=== PATIENT | male | born 1975 | race Caucasian/White ===

== ENCOUNTER 2018-07-05 14:38 | Inpatient (IN) | payer BC ==
[2018-07-05 14:42] VITALS: BMI 25.0
--- NOTE | 2018-07-05 15:06 | HP ---
CIWA Score - Admission Criteria OASAS Guidelines: Admission for Medically Managed Detox: Requires at least one of the followin. CIWA greater than 12 2. Seizures within the past 24 hours 3. Delirium tremens within the past 24 hours 4. Hallucinations within the past 24 hours 5. Acute intervention needed for co occurring medical disorder 6. Acute intervention needed for co occurring psychiatric disorder 7. Severe withdrawal that cannot be handled at a lower level of care (continued vomiting, continued diarrhea, abnormal vital signs) requiring intravenous medication and/or fluids 8. Admission ROS S - HPI Allergies/Adverse Reactions: Allergies Allergy/AdvReac Type Severity Reaction Status Date / Time No Known Allergies Allergy Verified 07/05/18 15:25 - Ebola screening Have you traveled outside of the country in the last 21 days: No (N) Have you had contact with anyone from an Ebola affected area: No Have you been sick,other than usual withdrawal symptoms: No Do you have a fever: No Patient History - Smoking Cessation Smoking history: Never smoked - Substances Abused Alcohol Route: Oral Frequency: Daily Amount used: liquor- 1 liter Age of first use: 11 Date of Last Use: 07/05/18 Admission Physical Exam [facility] - Vital Signs Vital Signs: Vital Signs - 24 hr 07/05/18 14:41 Temperature 97.8 F Pulse Rate 109 H Respiratory 20 Rate Blood Pressure 143/90 Screened but not Admitted - Documentation of Visit Screened but not Admitted: Yes Patient Does Not Meet Criteria for Admission: Yes Level of Care Recommended at this Time: ER Evaluation/Care Additional Information/Explanation: this 43 years old male brought in to [facility], intixicated,. bac0.255,unable to walk,. bp 143/90,p109,r20,t97.8. alcohol on breath,unable to give more information. need to be stabilization and medical clearance. spoke with nurse at [facility]. to be transpoted by [facility] Breath Alcohol Content Breath Alcohol Content: 0.255
--- NOTE | 2018-07-05 21:44 | HP ---
CIWA Score Nausea/Vomitin-No Nausea/No Vomiting Muscle Tremors: 7-Severe,w/o Arm Extended Anxiety: 6 Agitation: 5 Paroxysmal Sweats: 4-Forehead w/Sweat Beads Orientation: 2-Disoriented Date<2 days Tacttile Disturbances: 0-None Auditory Disturbances: 0-None Visual Disturbances: 2-Mild Sensitivity Headache: 4-Moderately Severe CIWA-Ar Total Score: 30 - Admission Criteria OASAS Guidelines: Admission for Medically Managed Detox: Requires at least one of the followin. CIWA greater than 12 2. Seizures within the past 24 hours 3. Delirium tremens within the past 24 hours 4. Hallucinations within the past 24 hours 5. Acute intervention needed for co occurring medical disorder 6. Acute intervention needed for co occurring psychiatric disorder 7. Severe withdrawal that cannot be handled at a lower level of care (continued vomiting, continued diarrhea, abnormal vital signs) requiring intravenous medication and/or fluids 8. Patient presents the following: CIWA greater than 12 Admission Criteria Met: Admission criteria met Admission ROS [facility] Chief Complaint: SEEKING DETOX FOR C/O OF WITHDRAWAL SX'S Allergies/Adverse Reactions: Allergies Allergy/AdvReac Type Severity Reaction Status Date / Time No Known Allergies Allergy Verified 07/05/18 15:25 History of Present Illness: 43 Y.O MALE WITH LONG HX/O ALCOHOLISM HERE FOR DETOX. CLIENT WAS REFERRED BY [facility] AFTER PRESENTING THE FOR BLOOD IN STOOL. HE HAS SINCE BEEN CLEARED AND REFERRED. HE NOW RETURNS FROM [facility] AFTER BEING SENT THERE FOR INTOXICATION AND UNABLE TO GIVE INFO. HE WAS SEEN FOR A POST FALL HEAD CT DONE NO ACUTE PATHOLOGY. NOW HERE FOR DETOX WITH C/O WITHDRAWAL SX'S. CIWA 30. THIS IS HIS FIRST ADMISSION HERE. REPORTS ATTEMPTED DETOX A FEW WEEKS AGO BUT ABORTED THE ADMISSION DUE TO CRAVINGS. REPORTS LONGEST CLEAN TIME 6 YEARS. RELAPSING 2018. DENIES HX/O SEIZURES, SI/HI, AVH. HOMELESS, UNEMPLOYED, DENIES LEGALS PMHX- DENIES PSYCH- PTSD- , ANXIETY Exam Limitations: No Limitations - Ebola screening Have you traveled outside of the country in the last 21 days: No (N) Have you had contact with anyone from an Ebola affected area: No Have you been sick,other than usual withdrawal symptoms: No Do you have a fever: No - Review of Systems Constitutional: Chills, Malaise, Night Sweats, Changes in sleep EENT: reports: Dental Problems (CHIPPED TOOTH) Respiratory: reports: No Symptoms reported Cardiac: reports: No Symptoms Reported GI: reports: Poor Fluid Intake : reports: No Symptoms Reported Musculoskeletal: reports: No Symptoms Reported Integumentary: reports: Flushing, Sweating, Other (RESOLVING HERPETIC SORE TO UPPER LIP) Neuro: reports: Tremors (R/T WITHDRAWAL) Endocrine: reports: No Symptoms Reported Hematology: reports: No Symptoms Reported Psychiatric: reports: Anxious, Depressed Other Systems: Reviewed and Negative Patient History - Patient Medical History Hx Anemia: No Hx Asthma: No Hx Chronic Obstructive Pulmonary Disease (COPD): No Hx Cancer: No Hx Cardiac Disorders: No Hx Congestive Heart Failure: No Hx Hypertension: No Hx Hypercholesterolemia: No Hx Pacemaker: No HX Cerebrovascular Accident: No Hx Seizures: No Hx Dementia: No Hx Diabetes: No Hx Gastrointestinal Disorders: No Hx Liver Disease: No Hx Genitourinary Disorders: No Hx Sexually Transmitted Disorders: No Hx Renal Disease (ESRD): No Hx Thyroid Disease: No Hx Human Immunodeficiency Virus (HIV): No Hx Hepatitis C: No Hx Depression: Yes Hx Suicide Attempt: No Hx Bipolar Disorder: No Hx Schizophrenia: No Other Medical History: PTSD, ANXIETY - Patient Surgical History Past Surgical History: No Hx Neurologic Surgery: No Hx Cataract Extraction: No Hx Cardiac Surgery: No Hx Lung Surgery: No Hx Breast Surgery: No Hx Breast Biopsy: No Hx Abdominal Surgery: No Hx Appendectomy: No Hx Cholecystectomy: No Hx Genitourinary Surgery: No Hx Section: No Hx Orthopedic Surgery: No Anesthesia Reaction: No - PPD History Previous Implant?: Yes Documented Results: Negative w/o proof Implanted On Prior R Admission?: No PPD to be Administered?: Yes - Smoking Cessation Smoking history: Never smoked Cigars Per Day: 0 Hx Chewing Tobacco Use: No Initiated information on smoking cessation: No - Substance & Tx. History Hx Alcohol Use: Yes Hx Substance Use: Yes Substance Use Type: Alcohol Hx Substance Use Treatment: Yes ([facility]) - Substances Abused Alcohol Route: Oral Frequency: Daily Amount used: liquor- 1 liter Age of first use: 11 Date of Last Use: 07/05/18 Family Disease History - Family Disease History Family History: Denies Family Disease History: CA: Mother (BREAST-REMISSION) Admission Physical Exam [facility] - Vital Signs Vital Signs: Vital Signs - 24 hr 07/05/18 07/05/18 14:41 20:32 Temperature 97.8 F 98.7 F Pulse Rate 109 H 99 H Respiratory 20 18 Rate Blood Pressure 143/90 140/80 - Physical General Appearance: Yes: Appropriately Dressed, Moderate Distress, Alcohol on Breath, Tremorous, Sweating, Anxious HEENTM: Yes: EOMI, Normal ENT Inspection, Normocephalic, Normal Voice, EDI, Pharynx Normal, Other (CHIPPED FRONT TOOTH) Respiratory: Yes: Chest Non-Tender, Lungs Clear, Normal Breath Sounds, No Respiratory Distress, No Accessory Muscle Use Neck: Yes: No masses,lesions,Nodules, Supple, Trachea in good position Breast: Yes: Breast Exam Deferred Cardiology: Yes: Regular Rhythm, Regular Rate, S1, S2 Abdominal: Yes: Non Tender, Soft, Increased Bowel Sounds Genitourinary: Yes: Within Normal Limits Back: Yes: Normal Inspection Musculoskeletal: Yes: full range of Motion, Gait Steady Extremities: Yes: Normal Capillary Refill, Normal Range of Motion, Non-Tender, Tremors Neurological: Yes: Alert, Motor Strength 5/5, Disoriented, Depressed Affect Integumentary: Yes: Clammy, Diaphoresis, Moist, Other (FLUSHED) Lymphatic: Yes: Within Normal Limits - Diagnostic (1) Alcohol dependence with uncomplicated withdrawal Current Visit: Yes Status: Acute (2) Depressed affect Current Visit: Yes Status: Acute (3) At risk for dehydration due to poor fluid intake Current Visit: Yes Status: Acute (4) Alcohol-induced mood disorder with depressive symptoms Current Visit: Yes Status: Acute (5) Status post fall Current Visit: Yes Status: Acute Cleared for Admission [facility] - Detox or Rehab [facility] Level of Care: Medically Managed Detox Regimen/Protocol: Librium Claeared for Rehab Admission: No [facility] Breath Alcohol Content Breath Alcohol Content: 0.255 Urine Drug Screen - Results Drug Screen Negative: No Urine Drug Screen Results: BZO-Benzodiazepines
[2018-07-05] MEDS ORDERED: ACETAMINOPHEN 325 MG TABLET (FP) PO PRN (22:02)
[2018-07-05] MEDS ORDERED: MAGNESIUM CITRATE 300 ML BOTTLE PO PRN (22:02)
[2018-07-05] MEDS ORDERED: P-EPHED 60MG/TRIPROLIDI 2.5MG TABLET PO PRN (22:02)
[2018-07-05] MEDS ORDERED: MAGNESIUM HYDROX 2400MG/30ML ORAL SUSPENSION 30 ML CUP PO PRN (22:02)
[2018-07-05] MEDS ORDERED: IBUPROFEN 400 MG TABLET (FP) PO PRN (22:02)
[2018-07-05] MEDS ORDERED: MENTHOL/PHENOL 1 EACH UD MM PRN (22:02)
[2018-07-05] MEDS ORDERED: LOPERAMIDE HCL 2 MG CAPSULE PO PRN (22:02)
[2018-07-05] MEDS ORDERED: guaiFENesin/D-METHORPHAN HB 10 ML UNIT-DOSE CUPS PO PRN (22:02)
[2018-07-05] MEDS ORDERED: chlordiazePOXIDE HCL 25 MG CAPSULE PO ONE (22:30)
[2018-07-05] MEDS: chlordiazePOXIDE HCL 25 MG CAPSULE PO SCH (22:33)
[2018-07-05] MEDS: MAG HYDROX/AL HYDROX/SIMETH 30 ML UNIT-DOSE CUP PO PRN (22:34)
[2018-07-06] MEDS: chlordiazePOXIDE HCL 25 MG CAPSULE PO PRN ×2 (00:31→09:30)
[2018-07-06] MEDS: hydrOXYzine PAMOATE 50 MG CAPSULE (FP) PO PRN (00:31)
[2018-07-06] MEDS: MELATONIN 5 MG TABLETS PO PRN (01:37)
[2018-07-06] MEDS: chlordiazePOXIDE HCL 25 MG CAPSULE PO SCH ×4 (04:03→22:19)
[2018-07-06 10:08] LABS: HEMATOCRIT 33.6 % (35.4-49); HEMOGLOBIN 10.3 GM/dL (11.7-16.9); MCHC 30.6 g/dl (32.0-35.9); MEAN CELL VOLUME 81.7 fl (80-96); MEAN PLT VOLUME 8.4 fl (7.5-11.1); PLATELET COUNT 236 K/MM3 (134-434); RBC 4.11 M/mm3 (4.00-5.60); RDW 15.5 % (11.9-15.9); WHITE BLOOD COUNT 5.5 K/mm3 (4.0-10.0)
[2018-07-06] MEDS: PRENATAL VITAMINS W/ FOLIC ACID TABLET (FP) PO SCH (10:15)
[2018-07-06 10:21] LABS: URINE APPEARANCE CLEAR; URINE BILIRUBIN NEGATIVE (<2.0 mg/dL); URINE COLOR LTYELLOW; URINE GLUCOSE (UA) 1+ (NEGATIVE); URINE KETONE NEGATIVE (NEGATIVE); URINE LEUK ESTERASE NEGATIVE (NEGATIVE); URINE NITRITE NEGATIVE (NEGATIVE); URINE PROTEIN NEGATIVE (NEGATIVE); URINE UROBILINOGEN NEGATIVE mg/dL (0.2-1.0)
[2018-07-06 10:23] LABS: ALBUMIN 3.2 g/dl (3.4-5.0); ALK PHOS 58 U/L (45-117); ANION GAP 8 MMOL/L (8-16); BILIRUBIN,TOTAL 0.3 mg/dL (0.2-1); BLOOD UREA NITROGEN 12 mg/dL (7-18); CALCIUM 8.3 mg/dL (8.5-10.1); CHLORIDE 106 mmol/L (98-107); CO2 26 mmol/L (21-32); CREATININE 0.9 mg/dL (0.55-1.3); GLUCOSE,RANDOM 84 mg/dL (74-106); POTASSIUM 4.3 mmol/L (3.5-5.1); SGOT/AST 35 U/L (15-37); SGPT/ALT 38 U/L (13-61); SODIUM 140 mmol/L (136-145); TOT PROT 6.1 g/dl (6.4-8.2)
--- NOTE | 2018-07-06 11:34 | PN ---
S CIWA - CIWA Score Nausea/Vomitin Muscle Tremors: 2 Anxiety: 2 Agitation: 2 Paroxysmal Sweats: 1-Minimal Palms Moist Orientation: 0-Oriented Tacttile Disturbances: 1-Very Mild Itch/Numbness Auditory Disturbances: 1-Very Mild Visual Disturbances: 0-None Headache: 2-Mild CIWA-Ar Total Score: 13 [facility] Progress Note (SOAP) Subjective: alert,irritable,anxious,interrupted sleep,tremor Objective: 07/06/18 11:32 Vital Signs Temperature 97.7 F 07/06/18 09:45 Pulse Rate 87 07/06/18 09:45 Respiratory Rate 18 07/06/18 09:45 Blood Pressure 117/84 07/06/18 09:45 O2 Sat by Pulse Oximetry (%) 07/06/18 11:32 Laboratory Last Values WBC 5.5 K/mm3 (4.0-10.0) 07/06/18 07:00 RBC 4.11 M/mm3 (4.00-5.60) 07/06/18 07:00 Hgb 10.3 GM/dL (11.7-16.9) L 07/06/18 07:00 Hct 33.6 % (35.4-49) L 07/06/18 07:00 MCV 81.7 fl (80-96) 07/06/18 07:00 MCH 25.0 pg (25.7-33.7) L 07/06/18 07:00 MCHC 30.6 g/dl (32.0-35.9) L 07/06/18 07:00 RDW 15.5 % (11.9-15.9) 07/06/18 07:00 Plt Count 236 K/MM3 (134-434) D 07/06/18 07:00 MPV 8.4 fl (7.5-11.1) 07/06/18 07:00 Sodium 140 mmol/L (136-145) 07/06/18 07:00 Potassium 4.3 mmol/L (3.5-5.1) 07/06/18 07:00 Chloride 106 mmol/L (98-107) 07/06/18 07:00 Carbon Dioxide 26 mmol/L (21-32) 07/06/18 07:00 Anion Gap 8 MMOL/L (8-16) 07/06/18 07:00 BUN 12 mg/dL (7-18) 07/06/18 07:00 Creatinine 0.9 mg/dL (0.55-1.3) 07/06/18 07:00 Creat Clearance w eGFR > 60 (>60) 07/06/18 07:00 Random Glucose 84 mg/dL (74-106) 07/06/18 07:00 Calcium 8.3 mg/dL (8.5-10.1) L 07/06/18 07:00 Total Bilirubin 0.3 mg/dL (0.2-1) 07/06/18 07:00 AST 35 U/L (15-37) 07/06/18 07:00 ALT 38 U/L (13-61) 07/06/18 07:00 Alkaline Phosphatase 58 U/L (45-117) 07/06/18 07:00 Total Protein 6.1 g/dl (6.4-8.2) L 07/06/18 07:00 Albumin 3.2 g/dl (3.4-5.0) L 07/06/18 07:00 Urine Color Ltyellow 07/06/18 08:10 Urine Appearance Clear 07/06/18 08:10 Urine pH 6.0 (5.0-8.0) 07/06/18 08:10 Ur Specific [place] 1.025 (1.010-1.035) 07/06/18 08:10 Urine Protein Negative (NEGATIVE) 07/06/18 08:10 Urine Glucose (UA) 1+ (NEGATIVE) H 07/06/18 08:10 Urine Ketones Negative (NEGATIVE) 07/06/18 08:10 Urine Blood Negative (NEGATIVE) 07/06/18 08:10 Urine Nitrite Negative (NEGATIVE) 07/06/18 08:10 Urine Bilirubin Negative (<2.0 mg/dL) 07/06/18 08:10 Urine Urobilinogen Negative mg/dL (0.2-1.0) 07/06/18 08:10 Ur Leukocyte Esterase Negative (NEGATIVE) 07/06/18 08:10 RPR Titer Nonreactive (NONREACTIVE) 07/06/18 07:00 Assessment: 07/06/18 11:33 withdrawal symptom Plan: continue detox
--- NOTE | 2018-07-06 16:24 | EKG ---
Test Reason : Blood Pressure : / mmHG Vent. Rate : 069 BPM Atrial Rate : 069 BPM P-R Int : 150 ms QRS Dur : 096 ms QT Int : 408 ms P-R-T Axes : 055 052 038 degrees QTc Int : 437 ms NORMAL SINUS RHYTHM NORMAL ECG NO PREVIOUS ECGS AVAILABLE Confirmed by CARMENZA CROSS MD ([id number]) on 07/06/2018 4:24:06 PM Referred By: Confirmed By:CARMENZA CROSS MD
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
[2018-07-06] MEDS ORDERED: QUEtiapine FUMARATE 50 MG TABLET PO SCH (22:00)
[2018-07-06] MEDS: THIAMINE HCL 100 MG TABLET (FP) PO SCH (22:19)
[2018-07-07] MEDS: chlordiazePOXIDE HCL 25 MG CAPSULE PO PRN (00:28)
[2018-07-07] MEDS: chlordiazePOXIDE HCL 25 MG CAPSULE PO SCH ×3 (05:45→17:54)
[2018-07-07] MEDS: PRENATAL VITAMINS W/ FOLIC ACID TABLET (FP) PO SCH (11:19)
--- NOTE | 2018-07-07 17:20 | PN ---
[facility] Progress Note Note: Psychiatric nurse practitioner note: Patient reports difficulty sleeping. Seroquel increased to 75mg. Verbal consent given.
--- NOTE | 2018-07-07 17:40 | PN ---
S CIWA - CIWA Score Nausea/Vomitin-No Nausea/No Vomiting Muscle Tremors: 3 Anxiety: 4-Mod. Anxious/Guarded Agitation: 3 Paroxysmal Sweats: No Perspiration Orientation: 2-Disoriented Date<2 days Tacttile Disturbances: 1-Very Mild Itch/Numbness Auditory Disturbances: 0-None Visual Disturbances: 0-None Headache: 0-None Present CIWA-Ar Total Score: 13 [facility] Progress Note (SOAP) Subjective: Fatigue, Anxious, Tremors. Objective: PATIENT A & O X 2 (UNCERTAIN ABOUT CURRENT DAY / DATE). PATIENT OBSERVED AMBULATING ON UNIT. IN NO ACUTE DISTRESS. 07/07/18 17:37 Vital Signs Temperature 98.1 F 07/07/18 15:38 Pulse Rate 98 H 07/07/18 15:38 Respiratory Rate 18 07/07/18 15:38 Blood Pressure 116/59 L 07/07/18 15:38 O2 Sat by Pulse Oximetry (%) Laboratory Tests 07/06/18 07/06/18 07/06/18 07:00 07:00 07:00 WBC 5.5 RBC 4.11 Hgb 10.3 L Hct 33.6 L MCV 81.7 MCH 25.0 L MCHC 30.6 L RDW 15.5 Plt Count 236 D MPV 8.4 Sodium 140 Potassium 4.3 Chloride 106 Carbon Dioxide 26 Anion Gap 8 BUN 12 Creatinine 0.9 Creat Clearance w eGFR > 60 Random Glucose 84 Calcium 8.3 L Total Bilirubin 0.3 AST 35 ALT 38 Alkaline Phosphatase 58 Total Protein 6.1 L Albumin 3.2 L Urine Color Urine Appearance Urine pH Ur Specific [place] Urine Protein Urine Glucose (UA) Urine Ketones Urine Blood Urine Nitrite Urine Bilirubin Urine Urobilinogen Ur Leukocyte Esterase RPR Titer Nonreactive 07/06/18 08:10 WBC RBC Hgb Hct MCV MCH MCHC RDW Plt Count MPV Sodium Potassium Chloride Carbon Dioxide Anion Gap BUN Creatinine Creat Clearance w eGFR Random Glucose Calcium Total Bilirubin AST ALT Alkaline Phosphatase Total Protein Albumin Urine Color Ltyellow Urine Appearance Clear Urine pH 6.0 Ur Specific [place] 1.025 Urine Protein Negative Urine Glucose (UA) 1+ H Urine Ketones Negative Urine Blood Negative Urine Nitrite Negative Urine Bilirubin Negative Urine Urobilinogen Negative Ur Leukocyte Esterase Negative RPR Titer LABS NOTED. Assessment: 07/07/18 17:39 WITHDRAWAL SYMPTOMS. Plan: CONTINUE DETOX.
[2018-07-07] MEDS: hydrOXYzine PAMOATE 50 MG CAPSULE (FP) PO PRN (17:58)
[2018-07-07] MEDS: QUEtiapine FUMARATE 25 MG TABLET (FP) PO SCH (22:43)
[2018-07-07] MEDS: THIAMINE HCL 100 MG TABLET (FP) PO SCH (22:43)
[2018-07-07] MEDS: MELATONIN 5 MG TABLETS PO PRN (22:43)
[2018-07-07] MEDS: chlordiazePOXIDE 5 MG CAPSULE PO SCH (22:43)
[2018-07-08] MEDS: chlordiazePOXIDE 5 MG CAPSULE PO SCH ×3 (05:48→17:50)
--- NOTE | 2018-07-08 09:28 | PN ---
S Progress Note (SOAP) Subjective: alert,irritable,interrupted sleep Objective: 07/08/18 09:27 Vital Signs Temperature 97.3 F L 07/08/18 06:45 Pulse Rate 64 07/08/18 06:45 Respiratory Rate 16 07/08/18 06:45 Blood Pressure 99/54 L 07/08/18 06:45 O2 Sat by Pulse Oximetry (%) Assessment: 07/08/18 09:27 withdrawal symptom Plan: continue detox,discharge in am
[2018-07-08] MEDS: hydrOXYzine PAMOATE 50 MG CAPSULE (FP) PO PRN (11:24)
[2018-07-08] MEDS: PRENATAL VITAMINS W/ FOLIC ACID TABLET (FP) PO SCH (11:24)
[2018-07-08] MEDS: MAG HYDROX/AL HYDROX/SIMETH 30 ML UNIT-DOSE CUP PO PRN (13:45)
[2018-07-08] MEDS: chlordiazePOXIDE HCL 10 MG CAPSULE PO SCH (22:20)
[2018-07-08] MEDS: THIAMINE HCL 100 MG TABLET (FP) PO SCH (22:20)
[2018-07-08] MEDS: QUEtiapine FUMARATE 25 MG TABLET (FP) PO SCH (22:21)
[2018-07-09] MEDS: chlordiazePOXIDE HCL 10 MG CAPSULE PO SCH ×3 (05:56→18:09)
--- NOTE | 2018-07-09 10:49 | DS ---
[facility] Detox Discharge Summary Admission Date: 07/05/18 Discharge Date: 07/09/18 - History Present History: Alcohol Dependence - Physical Exam Results Vital Signs: Vital Signs Temperature 98.5 F 07/09/18 09:43 Pulse Rate 74 07/09/18 09:43 Respiratory Rate 16 07/09/18 09:43 Blood Pressure 128/82 07/09/18 09:43 O2 Sat by Pulse Oximetry (%) - Treatment Hospital Course: Detox Protocol Followed, Detoxed Safely, Responded well, Discharged Condition Good, Rehab Referral Accepted - Medication Discharge Medications: Ambulatory Orders NK [No Known Home Medication] 07/05/18 - AMA Did Patient Leave Against Medical Advice: No
[2018-07-09] MEDS: PRENATAL VITAMINS W/ FOLIC ACID TABLET (FP) PO SCH (11:05)
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
[2018-07-09] MEDS: THIAMINE HCL 100 MG TABLET (FP) PO SCH (22:43)
[2018-07-09] MEDS: QUEtiapine FUMARATE 25 MG TABLET (FP) PO SCH (22:43)
[2018-07-10 07:15] VITALS: BP 104/65; PULSE 68; TEMP 97.5
--- NOTE | 2018-07-10 21:16 | DS ---
[facility] Detox Discharge Summary Admission Date: 07/05/18 Discharge Date: 07/10/18 - History Present History: Alcohol Dependence Additional Comments: PATIENT GOING TO [facility] ([place], [place]) FOR AFTERCARE. PATIENT WAS DISCHARGED FROM DETOX [facility] IN STABLE MEDICAL CONDITION. Pertinent Past History: History of Depression, History of P.T.S.D., History of Anxiety, Status Post Fall , History Of Insomnia. - Physical Exam Results Vital Signs: Vital Signs Temperature 97.5 F L 07/10/18 10:16 Pulse Rate 68 07/10/18 10:16 Respiratory Rate 18 07/10/18 10:16 Blood Pressure 104/65 07/10/18 10:16 O2 Sat by Pulse Oximetry (%) Pertinent Admission Physical Exam Findings: WITHDRAWAL SYMPTOMS. Laboratory Tests 07/06/18 07/06/18 07/06/18 07:00 07:00 07:00 WBC 5.5 RBC 4.11 Hgb 10.3 L Hct 33.6 L MCV 81.7 MCH 25.0 L MCHC 30.6 L RDW 15.5 Plt Count 236 D MPV 8.4 Sodium 140 Potassium 4.3 Chloride 106 Carbon Dioxide 26 Anion Gap 8 BUN 12 Creatinine 0.9 Creat Clearance w eGFR > 60 Random Glucose 84 Calcium 8.3 L Total Bilirubin 0.3 AST 35 ALT 38 Alkaline Phosphatase 58 Total Protein 6.1 L Albumin 3.2 L Urine Color Urine Appearance Urine pH Ur Specific [place] Urine Protein Urine Glucose (UA) Urine Ketones Urine Blood Urine Nitrite Urine Bilirubin Urine Urobilinogen Ur Leukocyte Esterase RPR Titer Nonreactive 07/06/18 08:10 WBC RBC Hgb Hct MCV MCH MCHC RDW Plt Count MPV Sodium Potassium Chloride Carbon Dioxide Anion Gap BUN Creatinine Creat Clearance w eGFR Random Glucose Calcium Total Bilirubin AST ALT Alkaline Phosphatase Total Protein Albumin Urine Color Ltyellow Urine Appearance Clear Urine pH 6.0 Ur Specific [place] 1.025 Urine Protein Negative Urine Glucose (UA) 1+ H Urine Ketones Negative Urine Blood Negative Urine Nitrite Negative Urine Bilirubin Negative Urine Urobilinogen Negative Ur Leukocyte Esterase Negative RPR Titer LABS NOTED. - Treatment Hospital Course: Detox Protocol Followed, Detoxed Safely, Responded well, Discharged Condition Good, Rehab Referral Accepted Patient has Accepted a Rehab Referral to: [facility] ([place], [place] ). - Medication Discharge Medications: Ambulatory Orders NK [No Known Home Medication] 07/05/18 - Diagnosis (1) Alcohol dependence with uncomplicated withdrawal Status: Resolved (2) Alcohol-induced mood disorder with depressive symptoms Status: Acute (3) At risk for dehydration due to poor fluid intake Status: Acute (4) Depressed affect Status: Acute (5) Status post fall Status: Acute (6) Alcohol-induced mood disorder Status: Acute (7) Insomnia Status: Acute Qualifiers: Insomnia type: unspecified Qualified Code(s): G47.00 - Insomnia, unspecified - AMA Did Patient Leave Against Medical Advice: No
== END 2018-07-10 10:50 | disposition home or self-care (01) | DRG 897 ==
LOC: YASAS 14:38 → Y6N 22:01
PROC: HZ2ZZZZ Detoxification Services for Substance Abuse Treatment (ICD-10-PCS; principal; 2018-07-05)
DX: F10.230 Alcohol dependence with withdrawal, uncomplicated (principal); F10.24 Alcohol dependence with alcohol-induced mood disorder; F41.9 Anxiety disorder, unspecified; F43.10 Post-traumatic stress disorder, unspecified; E86.0 Dehydration; G47.00 Insomnia, unspecified; R45.89 Other symptoms and signs involving emotional state; Z91.89 Other specified personal risk factors, not elsewhere classified; Z91.81 History of falling; Z59.0 Homelessness
CPT/HCPCS: 36415; 80053; 81003; 85027; 86593; 93005; 93010

== ENCOUNTER 2018-07-05 15:15 | Emergency (ER) | payer SELFPAY ==
[2018-07-05 15:25] VITALS: TEMP 98.2; BMI 25.0
--- NOTE | 2018-07-05 16:07 | PDOC ---
History of Present Illness - General Chief Complaint: Alcohol intoxication Stated Complaint: DETOX Time Seen by Provider: 07/05/18 15:54 History Source: Patient Exam Limitations: Intoxication - History of Present Illness Initial Comments: 07/05/18 16:12 Patient is a 43 year old male with a PMHx of PTSD, Bipolar disorder, depression , Alcohol abuse who was sent from [facility] for intoxication and medical clearance. Patient is a poor historian but states he's been drinking over 1 Liter of vodka a day for the past three weeks and was recently admitted at [facility] for Alcohol Withdrawals. States he was placed on Librium for three days and was discharged on [facility] after completing the Librium. However, patient reports since his discharge, he's been drinking excessively and keeps stating " I'm drunk." Patient reports his last drink was around noon today but prior to that he had tremors and once he drank alcohol, his tremors stopped. Patient now reports having a moderate left sided headache but is unsure if he fell. Unable to give Patient also reports bright streaks of blood in the stool happening for several days. Otherwise, patient denies fever, chills, nausea, vomiting, abdominal pain, chest pain, palpitations, shortness of breath, dysuria, hematuria, hematemesis. PMHx: Bipolar disorder PTSD Depression Alcohol Abuse PSHx: Appendectomy Social Hx: Reports 1L of Vodka daily for the last three weeks Denies smoking Denies drug use Past History - Past Medical History Allergies/Adverse Reactions: Allergies Allergy/AdvReac Type Severity Reaction Status Date / Time No Known Allergies Allergy Verified 07/05/18 15:25 Home Medications: Ambulatory Orders NK [No Known Home Medication] 07/05/18 COPD: No CHF: No Psychiatric Problems: Yes (PTSD, bipolar, alcohol, cocaine, crack) - Suicide/Smoking/Psychosocial Hx Smoking History: Never smoked Have you smoked in the past 12 months: No Information on smoking cessation initiated: No Hx Alcohol Use: No Drug/Substance Use Hx: No Review of Systems - Review of Systems Constitutional: No: Chills, Diaphoresis, Fever HEENTM: No: Nose Congestion, Throat Pain Respiratory: No: Cough, Orthopnea, Shortness of Breath, Wheezing Cardiac (ROS): No: Chest Pain, Edema, Palpitations, Syncope, Chest Tightness ABD/GI: Yes: Rectal Bleeding. No: Abdominal Distended, Constipated, Difficulty Swallowing, Nausea, Indigestion : No: Burning, Dysuria, Discharge, Frequency, Flank Pain, Hematuria Musculoskeletal: No: Back Pain, Neck Pain Integumentary: No: Bruising, Flushing, Lesions Neurological: No: Numbness, Tremors *Physical Exam - Vital Signs Last Vital Signs Temp Pulse Resp BP Pulse Ox 98.2 F 109 H 16 133/94 100 07/05/18 15:23 07/05/18 15:23 07/05/18 15:23 07/05/18 15:23 07/05/18 15:23 - Physical Exam General Appearance: Yes: Disheveled (Awake, alert, oriented x3 ) HEENT: positive: EOMI, EDI, Normal ENT Inspection, Pharynx Normal, Other (Left facial swelling with no erythema, bruising, or lacerations ). negative: Tonsillar Exudate, Tonsillar Erythema, Nasal Congestion Neck: positive: Supple. negative: Decreased range of motion, Lymphadenopathy (R ), Lymphadenopathy (L) Respiratory/Chest: positive: Lungs Clear, Normal Breath Sounds. negative: Crackles, Rales, Rhonchi, Wheezing Cardiovascular: positive: Regular Rhythm, S1, S2, Tachycardia. negative: Edema , JVD, Murmur Gastrointestinal/Abdominal: positive: Other (Soft, nontender, nondistended, normoactive bowel sounds ) Rectal Exam: positive: heme negative stool, normal exam, normal rectal tone Musculoskeletal: positive: Normal Inspection. negative: CVA Tenderness, CVA Tenderness (R), CVA Tenderness (L) Extremity: positive: Normal Capillary Refill, Normal Inspection, Normal Range of Motion. 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, Fully Oriented, Alert, Motor Strength 5/5 Moderate Sedation - Procedure Monitoring Vital Signs: Procedure Monitoring Vital Signs Temperature 98.2 F 07/05/18 15:23 Pulse Rate 109 H 07/05/18 15:23 Respiratory Rate 16 07/05/18 15:23 Blood Pressure 133/94 07/05/18 15:23 O2 Sat by Pulse Oximetry (%) 100 07/05/18 15:23 ED Treatment Course - LABORATORY CBC & Chemistry Diagram: 07/05/18 16:19 07/05/18 16:19 Medical Decision Making - Medical Decision Making 07/05/18 16:49 Patient is a 43 year old male with significant PMHx of bipolar disorder, PTSD, depression, alcohol abuse who presented here intoxicated and s/p fall from [facility]. Patient also reports bright red blood in stool for the last week for which he was seen in [facility]. -CBC, CMP ordered -Banana bag ordered -Head CT ordered -Will need rectal exam to further assess rectal bleeding -Drug screen -No withdrawal symptoms currently. -Will need to call [facility] for further information. 07/05/18 18:27 -FOBT negative -Awaiting Head CT -Labs unremarkable -Drug screen positive for Benzo's, which is expected due to recent Librium taper. Patient currently in bed sleeping comfortably 07/05/18 19:10 -Head CT revealed bilateral nasal fractures that are chronic with no acute intracranial pathology -Patient medically cleared to go back to [facility] once [facility] returns our call. 07/05/18 19:29 -Case discussed with Dr. Holland who accepts patient back to [facility] *DC/Admit/Observation/Transfer Diagnosis at time of Disposition: Status post fall Alcohol intoxication Qualifiers: Complication of substance-induced condition: with unspecified complication Qualified Code(s): F10.929 - Alcohol use, unspecified with intoxication, unspecified - Discharge Dispostion Disposition: TRANSFER ACUTE CARE/OTHER HOSP Condition at time of disposition: Stable Decision to Admit order: No - Referrals - Patient Instructions Additional Instructions: -You were admitted here due to alcohol intoxication and a fall as a result. A head CT was done and revealed no acute pathology. You may go back to Detox. -Please follow up with your Primary Care Physician once you complete detox. -If you have worsening symptoms such as worsening headache or acute vision changes, seizures, tremors, etc, please return to the Emergency department. - Post Discharge Activity
--- NOTE | 2018-07-05 16:10 | PDOC ---
Attending Attestation - HPI HPI: 07/05/18 16:47 The patient is a 43-year-old male, with a past medical history of PTSD, bipolar disorder, depression, alcohol abuse, cocaine abuse, who was sent to the ED from [facility] for alcohol intoxication and medical clearance. The patient was not able to provide a clear history while at their facility. Patient also fell and hit the right-side of his face while at [facility]. On exam, the patient reports experiencing multiple days of bright red blood per rectum. Patient has noted streaks of red blood in his stool; stool is brown. The patient denies any fever, chills, nausea, vomiting, diarrhea, or abdominal pain. Denies any chest pain or shortness of breath. Denies any urinary symptoms. - Physicial Exam PE: 07/05/18 16:48 GENERAL: Awake, alert, and fully oriented, in no acute distress HEAD: (+)Soft tissue swelling of the right face. No other external signs of trauma. EYES: PERRLA, EOMI, sclera anicteric, conjunctiva clear ENT: Auricles normal inspection, hearing grossly normal, nares patent, oropharynx clear without exudates. Moist mucosa NECK: Normal ROM, supple, no lymphadenopathy, JVD, or masses LUNGS: Breath sounds equal, clear to auscultation bilaterally. No wheezes, and no crackles HEART: (+)Tachy. Normal S1 and S2, no murmurs, rubs or gallops ABDOMEN: Soft, nontender, normoactive bowel sounds. No guarding, no rebound. No masses EXTREMITIES: Normal range of motion, no edema. No clubbing or cyanosis. No cords, erythema, or tenderness NEUROLOGICAL: (+)Mild hand tremors. No focal fasciculations. Cranial nerves II through XII grossly intact. Normal speech. Ambulates with steady gait. SKIN: Warm, Dry, normal turgor, no rashes or lesions noted <Sarah Suarez - Last Filed: 07/05/18 16:47> - Resident Resident Name: Elsie Mcneil - ED Attending Attestation I have performed the following: I have examined & evaluated the patient, The case was reviewed & discussed with the resident, I agree w/resident's findings & plan, Exceptions are as noted - Medical Decision Making 07/05/18 16:10 I, Dr. Marsha Medel DO, attest that this document has been prepared under my direction and personally reviewed by me in its entirety. I further attest, that it accurately reflects all work, treatment, procedures and medical decision -making performed by me. 07/05/18 16:39 43yo male with hx of ETOH abuse presents for medical clearance for detox -pt with closed head injury - facial swelling/hematoma -pt appears dehydrated -c/o episodes of rectal bleeding - BRB streaks in brown formed stool -denies melena -no abd pain -will send labs, head ct -will give banana bag -will give reglan for duffy -currently not in withdraws-last drink 1 hour ago -will monitor and reassess -once medically clear, will transfer back to [facility] 07/05/18 18:15 labs reviewed pending head ct 07/05/18 19:[address] shows chronic nasal bone fx labs reviewed stable for dc back to [facility] for detox eval 07/05/18 19:[address] Holland who accepts pt back to [facility] for intake for detox from [facility] <Marsha Medel - Last Filed: 07/05/18 19:29> Attestations - Attestations 07/05/18 16:52 Documentation prepared by Sarah Suarez, acting as medical policy specialist for Marsha Medel DO. <Sarah Suarez - Last Filed: 07/05/18 16:47>
[2018-07-05] MEDS ORDERED: FOLIC ACID INJECTION - 1 MG, THIAMINE HCL 100 MG, MULTIVIT INJECTION ADULT 10 ML in SOD... IVPB ONE (16:11)
[2018-07-05 16:32] LABS: BASO % 1.2 % (0-2.0); EOS % 1.3 % (0-4.5); HEMATOCRIT 37.4 % (35.4-49); HEMOGLOBIN 12.7 GM/dL (11.7-16.9); LYMPH % 27.6 % (8-40); MCHC 33.9 g/dl (32.0-35.9); MEAN CELL VOLUME 79.4 fl (80-96); MEAN PLT VOLUME 7.7 fl (7.5-11.1); MONO % 9.2 % (3.8-10.2); NEUT % 60.7 % (42.8-82.8); PLATELET COUNT 308 K/MM3 (134-434); RBC 4.71 M/mm3 (4.00-5.60); RDW 15.1 % (11.9-15.9); WHITE BLOOD COUNT 6.5 K/mm3 (4.0-10.0)
[2018-07-05] MEDS ORDERED: METOCLOPRAMIDE HCL INJECTION 10 MG/2 ML VIAL IVPUSH ONE (16:35)
[2018-07-05 16:49] LABS: COCAINE, UR NEGATIVE ng/ml (CUTOFF=300); METHADONE, UR NEGATIVE ng/ml (CUTOFF=300); OPIATES, URI NEGATIVE ng/ml (CUTOFF=300); PHENCYCLIDINE,URINE NEGATIVE ng/ml (CUTOFF=25); URINE AMPHETAMINES NEGATIVE ng/ml (CUTOFF=500); URINE BARBITURATES NEGATIVE ng/ml (CUTOFF=200)
[2018-07-05 16:53] LABS: URINE BENZODIAZEPINES POSITIVE ng/ml (CUTOFF=200)
[2018-07-05] MEDS ORDERED: METOCLOPRAMIDE HCL INJECTION 10 MG/2 ML VIAL ONE ×2 (16:54→17:32)
[2018-07-05 17:13] LABS: ALBUMIN 4.1 g/dl (3.4-5.0); ALK PHOS 75 U/L (45-117); ANION GAP 7 MMOL/L (8-16); BILIRUBIN,TOTAL 0.2 mg/dL (0.2-1); BLOOD UREA NITROGEN 11 mg/dL (7-18); CALCIUM 8.9 mg/dL (8.5-10.1); CHLORIDE 106 mmol/L (98-107); CO2 28 mmol/L (21-32); GLUCOSE,RANDOM 97 mg/dL (74-106); MAGNESIUM 2.5 mg/dL (1.8-2.4); POTASSIUM 4.2 mmol/L (3.5-5.1); SGOT/AST 42 U/L (15-37); SGPT/ALT 48 U/L (13-61); SODIUM 141 mmol/L (136-145); TOT PROT 7.9 g/dl (6.4-8.2)
[2018-07-05 19:11] VITALS: BP 115/74; PULSE 98
--- NOTE | 2018-07-06 09:46 | PN ---
[facility] CIWA - CIWA Score Nausea/Vomitin Muscle Tremors: 2 Anxiety: 2 Agitation: 2 Paroxysmal Sweats: 1-Minimal Palms Moist Orientation: 0-Oriented Tacttile Disturbances: 1-Very Mild Itch/Numbness Auditory Disturbances: 1-Very Mild Visual Disturbances: 0-None Headache: 2-Mild CIWA-Ar Total Score: 13 [facility] Progress Note (SOAP) Subjective: alert,irritable,anxious,interrupted sleep,tremor,pain in the body Objective: 07/06/18 09:45 Vital Signs Temperature 98.2 F 07/05/18 15:23 Pulse Rate 98 H 07/05/18 19:11 Respiratory Rate 18 07/05/18 19:11 Blood Pressure 115/74 07/05/18 19:11 O2 Sat by Pulse Oximetry (%) 99 07/05/18 19:11 Laboratory Last Values WBC 6.5 K/mm3 (4.0-10.0) 07/05/18 16:19 RBC 4.71 M/mm3 (4.00-5.60) 07/05/18 16:19 Hgb 12.7 GM/dL (11.7-16.9) 07/05/18 16:19 Hct 37.4 % (35.4-49) 07/05/18 16:19 MCV 79.4 fl (80-96) L 07/05/18 16:19 MCH 27.0 pg (25.7-33.7) 07/05/18 16:19 MCHC 33.9 g/dl (32.0-35.9) 07/05/18 16:19 RDW 15.1 % (11.9-15.9) 07/05/18 16:19 Plt Count 308 K/MM3 (134-434) 07/05/18 16:19 MPV 7.7 fl (7.5-11.1) 07/05/18 16:19 Absolute Neuts (auto) 3.9 K/mm3 (1.5-8.0) 07/05/18 16:19 Neutrophils % 60.7 % (42.8-82.8) 07/05/18 16:19 Lymphocytes % 27.6 % (8-40) 07/05/18 16:19 Monocytes % 9.2 % (3.8-10.2) 01/02/19 16:19 Eosinophils % 1.3 % (0-4.5) 07/05/18 16:19 Basophils % 1.2 % (0-2.0) 07/05/18 16:19 Nucleated RBC % 0 % (0-0) 07/05/18 16:19 Sodium 141 mmol/L (136-145) 07/05/18 16:19 Potassium 4.2 mmol/L (3.5-5.1) 07/05/18 16:19 Chloride 106 mmol/L (98-107) 07/05/18 16:19 Carbon Dioxide 28 mmol/L (21-32) 07/05/18 16:19 Anion Gap 7 MMOL/L (8-16) L 07/05/18 16:19 BUN 11 mg/dL (7-18) 07/05/18 16:19 Creatinine 1.0 mg/dL (0.55-1.3) 07/05/18 16:19 Creat Clearance w eGFR > 60 (>60) 07/05/18 16:19 Random Glucose 97 mg/dL (74-106) 07/05/18 16:19 Calcium 8.9 mg/dL (8.5-10.1) 07/05/18 16:19 Magnesium 2.5 mg/dL (1.8-2.4) H 07/05/18 16:19 Total Bilirubin 0.2 mg/dL (0.2-1) 07/05/18 16:19 AST 42 U/L (15-37) H 07/05/18 16:19 ALT 48 U/L (13-61) 07/05/18 16:19 Alkaline Phosphatase 75 U/L (45-117) 07/05/18 16:19 Total Protein 7.9 g/dl (6.4-8.2) 07/05/18 16:19 Albumin 4.1 g/dl (3.4-5.0) 07/05/18 16:19 Stool Occult Blood Negative (NEGATIVE) 07/05/18 17:11 Opiates Screen Negative ng/ml (WRUTVK=677) 07/05/18 16:19 Methadone Screen Negative ng/ml (PUTKBY=087) 07/05/18 16:19 Barbiturate Screen Negative ng/ml (WYHUEO=336) 07/05/18 16:19 Phencyclidine Screen Negative ng/ml (CUTOFF=25) 07/05/18 16:19 Ur Amphetamines Screen Negative ng/ml (LPYGNT=154) 07/05/18 16:19 MDMA (Ecstasy) Screen Negative ng/ml (DIOITU=670) 07/05/18 16:19 Benzodiazepines Screen Positive ng/ml (HETPVP=202) A* 07/05/18 16:19 Cocaine Screen Negative ng/ml (HQGZUH=901) 07/05/18 16:19 U Marijuana (THC) Screen Negative ng/ml (CUTOFF=50) 07/05/18 16:19 Assessment: 07/06/18 09:45 withdrawal symptom Plan: continue detox
== END 2018-07-05 19:36 | disposition short-term general hospital (02) ==
LOC: JER 15:15
PROC: 3E033GC Introduction of Other Therapeutic Substance into Peripheral Vein, Percutaneous Approach (ICD-10-PCS; principal; 2018-07-05)
DX: F10.929 Alcohol use, unspecified with intoxication, unspecified (principal)
CPT/HCPCS: 36415; 70450-TC; 80053; 80307; 82272; 83735; 85025; 99284-25; J7030